=== PATIENT | female | born 1960 | race Hispanic/Latino ===

== ENCOUNTER 2017-10-18 10:56 | Outpatient (CLI) | payer OTHER ==
[2017-10-18 11:14] LABS: #Basophils 0.1 thou/uL (0.0-0.2); #Eosinphils 0.2 thou/uL (0.0-0.7); #Lymphocytes 2.7 thou/uL (1.20-3.40); #Monocytes 0.5 thou/uL (0.11-0.59); #Neutrophils 3.5 thou/uL (1.40-6.50); %Basophils 1.1 % (0.0-1.0); %Eosinophils 3.5 % (0.0-10.0); %Lymphocytes 38.8 % (21.0-51.0); %Monocytes 7.1 % (0.0-10.0); %Neutrophils 49.5 % (42.0-75.0); Hemoglobin 13.5 g/dL (12.0-16.0); Mean Corpuscular HGB CONC 35.2 g/dL (32.0-36.0); Mean Corpuscular Hemoglobin 30.1 pg (27.0-31.0); Mean Corpuscular Volume 85.5 fL (78.0-98.0); Mean Platelet Volume 7.4 fL (7.4-10.4); Platelet Count 272 thou/uL (130-400); RBC Distribution Width 10.7 % (11.5-14.5); Red Blood Cell (RBC) Count 4.51 mill/uL (4.20-5.40)
[2017-10-18 11:35] LABS: ALT (SGPT) 33 U/L (8-55); AST (SGOT) 28 U/L (5-34); Albumin 4.3 g/dL (3.5-5.0); Alkaline Phosphatase 103 U/L (40-150); Anion Gap 12 mmol/L (10-20); BUN (Urea Nitrogen) 10 mg/dL (9.8-20.1); Bilirubin, Total 0.6 mg/dL (0.2-1.2); Calc. Creatinine Clearance 0 mL/min (70-130); Calcium 9.6 mg/dL (7.8-10.44); Carbon Dioxide 26 mmol/L (22-29); Cardiac Risk 4.4 (Less than 4.5); Cholesterol 254 mg/dl (< 200 Desired); Estimated GFR-MDRD 85; Globulin 3.9 g/dL (2.4-3.5); Glucose 107 mg/dL (70-105); HDL Cholesterol 58 mg/dL (>60 Neg Risk); LDL Cholesterol, Calculated 158 mg/dL; Protein, Total 8.2 g/dL (6.0-8.3); Sodium 141 mmol/L (136-145); Triglycerides 192 mg/dL (Less than 150)
--- NOTE | 2017-10-18 12:00 | RAD ---
LUMBAR SPINE TWO VIEWS: History: 57-year-old female with history of low back pain primarily right sided, involving the upper and lower back with pain irradiating down the right leg. FINDINGS: Mild levoscoliosis of the lumbar vertebral column. 1.3 cm anterolisthesis of L5 on S1. Generalized di sc osteophytosis and facet arthrosis. No evidence for an acute compression fracture or focal bone les ion. IMPRESSION: Mild levoscoliosis of the lumbar vertebral column with 1.3 cm anterolisthesis of L5 on S1. Considerat ion for follow up standing flexion and extension views of the lumbar spine should be considered to ev aluate for potential instability. Arthrosis changes noted involving hip joints and SI joints and yesenia e sclerosis at the level of the pubic symphysis. No other acute process. POS: [facility]
--- NOTE | 2017-10-18 12:02 | RAD ---
THORACIC SPINE THREE VIEWS: History: 57-year-old female with history of right upper and lower back pain for three days with radiation down right leg. FINDINGS: There is extensive multilevel thoracic disc osteophytosis with some bony bridging. There is very slig ht vertical height lossof the anterior aspect of several upper thoracic vertebral bodies, nonspecific , but having more of an old appearance. IMPRESSION: Thoracic spondylosis. Very mild vertical height loss of several of the upper anterior and thoracic ve rtebral bodies having a more of an old appearance although if patient is focally point tender to this region, consideration for follow up MRI study might be of benefit. POS: [facility]
[2017-10-18 12:07] LABS: Free T4 (Free Thyroxine) 1.01 ng/dL (0.70-1.48); Thyroid Stimulating Hormone 2.1303 uIU/mL (0.35-4.94)
[2017-10-18 12:35] LABS: Chloride 107 mmol/L (98-107); Potassium 4.3 mmol/L (3.5-5.1)
[2017-10-18 14:57] LABS: Hemoglobin A1c 5.7 % (4.0-6.0)
== END 2017-10-18 10:57 | disposition home or self-care (01) ==
LOC: SCSRAD 10:56
PROVIDERS: ATTEND Family Medicine
DX: E78.5 Hyperlipidemia, unspecified (principal); R73.09 Other abnormal glucose; M54.41 Lumbago with sciatica, right side
CPT/HCPCS: 36415; 72072; 72100; 80053; 80061; 83036; 84439; 84443; 85025

== ENCOUNTER 2017-10-25 10:50 | Outpatient (CLI) | payer OTHER ==
--- NOTE | 2017-10-25 11:50 | RAD ---
LUMBAR SPINE: INDICATIONS: Back pain. Follow-up anterolisthesis at L5-S1, noted on prior exam. TECHNIQUE: Two views obtained. Lateral views were obtained with flexion and extension. FINDINGS: The anterolisthesis at L5-S1 is again noted and continues to measure approximately 1.3 cm. There is no change with flexion and extension. 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 POS: [facility]
== END 2017-10-25 10:51 | disposition home or self-care (01) ==
LOC: SCSRAD 10:50
PROVIDERS: ATTEND Family Medicine
DX: M43.16 Spondylolisthesis, lumbar region (principal)
CPT/HCPCS: 72100

== ENCOUNTER 2017-11-15 10:08 | Outpatient (CLI) | payer OTHER ==
--- NOTE | 2017-11-15 11:15 | RAD ---
PA AND LATERAL CHEST: History: Substernal chest pain. Pain with deep inspiration. FINDINGS: Heart size and mediastinum are within normal limits. The lungs are clear of infiltrates. No pleural e ffusions. No significant bony findings. Post op cholecystectomy change incidentally seen. IMPRESSION: No active intrathoracic disease. POS: [facility]
== END 2017-11-15 10:09 | disposition home or self-care (01) ==
LOC: SCSRAD 10:08
PROVIDERS: ATTEND Family Medicine
DX: M54.89 Other dorsalgia (principal)
CPT/HCPCS: 71046; 87086

== ENCOUNTER 2021-01-08 12:29 | Outpatient (CLI) | payer OTHER ==
[2021-01-08 14:11] LABS: Prothrombin Time 10.6 sec (9.5-12.1)
[2021-01-08 14:14] LABS: #Eosinphils 0.4 10x3/uL (0.0-0.5); #Monocytes 0.6 10x3/uL (0.0-1.1); #Neutrophils 4.6 10x3/uL (1.5-8.4); %Basophils 0.5 % (0.0-2.0); %Eosinophils 4.5 % (0.0-6.0); %Lymphocytes 33.1 % (18.0-47.0); %Neutrophils 54.8 % (40.0-75.0); Hemoglobin 12.7 g/dL (12.0-15.5); Mean Corpuscular HGB CONC 33.8 g/dL (32.0-36.0); Mean Corpuscular Hemoglobin 30.2 pg (27.0-33.0); Mean Corpuscular Volume 89.5 fl (81.6-98.3); Mean Platelet Volume 10.5 fl (7.4-10.4); Platelet Count 285 10x3/uL (150-450); RBC Distribution Width 12.4 % (11.5-14.5); White Blood Cell (WBC) Count 8.3 10x3/uL (3.5-10.5)
[2021-01-08 14:22] LABS: Anion Gap 14 mmol/L (10-20); BUN (Urea Nitrogen) 12 mg/dL (9.8-20.1); Calc. Creatinine Clearance 0 mL/min (70-130); Calcium 8.9 mg/dL (7.8-10.44); Carbon Dioxide 24 mmol/L (23-31); Chloride 108 mmol/L (98-107); Glucose 124 mg/dL (80-115); Potassium 4.2 mmol/L (3.5-5.1); Sodium 142 mmol/L (136-145)
[2021-01-08 21:14] LABS: SARS-CoV-2 PCR by NAA Not Detected (NotDetected)
== END 2021-01-08 12:30 | disposition home or self-care (01) ==
LOC: LABBT 12:29
PROVIDERS: ATTEND Orthopaedic Surgery
DX: Z01.818 Encounter for other preprocedural examination (principal); M17.12 Unilateral primary osteoarthritis, left knee; Z20.822 Contact with and (suspected) exposure to COVID-19
CPT/HCPCS: 80048; 85025; 85610; 87081; 93005; 93010; U0003; U0005

== ENCOUNTER 2021-01-12 05:34 | Day surgery (SDC) | payer OTHER ==
[2021-01-11 14:50] VITALS: BMI 34.0
[2021-01-12] MEDS ORDERED: Tranexamic Acid 1,000 MG/10 ML VIAL ONE (05:57)
[2021-01-12] MEDS ORDERED: Sodium Chloride 0.9% 100 ML ONE (05:57)
[2021-01-12] MEDS ORDERED: Vancomycin 1.5 GRAM/300 ML BAG 1.5 GM in Premix Bag 1 BAG IVPB SCH (06:15)
[2021-01-12] MEDS ORDERED: EPINEPHrine 1 MG/ML AMP ONE (06:29)
[2021-01-12] MEDS ORDERED: Bupivacaine 0.25% HCL 30 ML VIAL ONE (06:29)
[2021-01-12] MEDS ORDERED: Midazolam HCl 2 mg/2 ml Vial ONE (06:47)
[2021-01-12] MEDS ORDERED: Fentanyl 100 MCG/2 ML VIAL ONE ×4 (06:47→10:06)
[2021-01-12] MEDS ORDERED: Lidocaine 1% (PF) 30 ML VIAL ONE (06:47)
[2021-01-12] MEDS ORDERED: Ketorolac Tromethamine 30 MG/ML VIAL ONE (07:05)
[2021-01-12] MEDS ORDERED: Ondansetron PF 4 MG/2 ML Vial ONE (07:05)
[2021-01-12] MEDS ORDERED: Dexamethasone 20 MG/5 ML VIAL ONE (07:05)
[2021-01-12] MEDS ORDERED: Glycopyrrolate 0.2 MG/ML 5 ML SYRINGE ONE (07:05)
[2021-01-12] MEDS ORDERED: Rocuronium Bromide 10 MG/ML (10ML VIAL) ONE (07:05)
[2021-01-12] MEDS ORDERED: PROPOFOL 200 MG/20 ML VIAL ONE (07:05)
[2021-01-12] MEDS ORDERED: Bupivacaine HCl 0.5%/Epinephrine 1:200,000/PF 30 ml Vial ONE (07:05)
[2021-01-12] MEDS ORDERED: Fentanyl 100 MCG/2 ML VIAL IV PRN (09:09)
[2021-01-12] MEDS ORDERED: Promethazine HCl 25 MG/ML VIAL IM PRN ×2 (09:10→09:15)
[2021-01-12] MEDS ORDERED: Zolpidem Tartrate 5 MG TAB PO PRN ×2 (09:10→09:15)
[2021-01-12] MEDS ORDERED: diphenhydrAMINE 25 MG CAP PO PRN (09:10)
[2021-01-12] MEDS ORDERED: HYDROcodone/Acetaminophen 10/325 mg Tablet PO PRN ×4 (09:10→09:15)
[2021-01-12] MEDS ORDERED: Acetaminophen 325 MG TAB PO PRN (09:10)
[2021-01-12] MEDS ORDERED: Fentanyl 100 MCG/2 ML VIAL SLOW IVP PRN ×2 (09:10)
[2021-01-12] MEDS ORDERED: Ondansetron PF 4 MG/2 ML Vial IVP PRN ×2 (09:10→09:15)
[2021-01-12] MEDS ORDERED: Ropivacaine HCl/PF 250 ML in Premix Bag 1 BAG NERVE BLCK SCH (09:15)
[2021-01-12] MEDS ORDERED: traMADol HCl 50 MG TAB PO PRN ×2 (09:15)
[2021-01-12] MEDS: Sodium Chloride 0.9% 1,000 ML IV SCH ×2 (10:26→20:13)
[2021-01-12] MEDS: Ketorolac Tromethamine 30 MG/ML VIAL IVP SCH ×2 (13:24→23:35)
[2021-01-12] MEDS: CEFAZOLIN 2 GM in Sodium Chloride 0.9% 100 ML IVPB SCH ×2 (13:58→23:35)
[2021-01-12] MEDS ORDERED: Vancomycin HCl 1.5 GM in Sodium Chloride 0.9% 250 ML 300 ML IVPB SCH (20:00)
[2021-01-12] MEDS: Atorvastatin Calcium 40 MG TAB PO SCH (20:11)
[2021-01-12] MEDS: Aspirin 81 mg Enteric Coated Tablet PO SCH (20:12)
[2021-01-13] MEDS: Ketorolac Tromethamine 30 MG/ML VIAL IVP SCH ×3 (05:34→21:42)
[2021-01-13] MEDS: Sodium Chloride 0.9% 1,000 ML IV SCH ×2 (05:37→14:30)
[2021-01-13 05:58] LABS: Hemoglobin 11.3 g/dL (12.0-16.0); Mean Corpuscular HGB CONC 35.2 g/dL (32.0-36.0); Mean Corpuscular Hemoglobin 32.2 pg (27.0-31.0); Mean Corpuscular Volume 91.5 fL (78.0-98.0); Mean Platelet Volume 7.8 fL (7.4-10.4); Platelet Count 237 thou/uL (130-400); RBC Distribution Width 11.7 % (11.5-14.5); Red Blood Cell (RBC) Count 3.51 mill/uL (4.20-5.40); White Blood Cell (WBC) Count 11.1 thou/uL (4.8-10.8)
[2021-01-13] MEDS: Aspirin 81 mg Enteric Coated Tablet PO SCH ×2 (08:41→20:02)
[2021-01-13] MEDS: Ferrous Gluconate 324 MG TAB PO SCH ×2 (08:41→17:34)
[2021-01-13] MEDS: Multivitamin W/ Minerals 1 TAB PO SCH (08:41)
[2021-01-13] MEDS: Senokot S 8.6-50 MG TAB PO SCH ×2 (08:41→20:02)
[2021-01-13] MEDS: Atorvastatin Calcium 40 MG TAB PO SCH (20:02)
[2021-01-14] MEDS: Sodium Chloride 0.9% 1,000 ML IV SCH ×2 (01:41→09:29)
[2021-01-14] MEDS: Ketorolac Tromethamine 30 MG/ML VIAL IVP SCH (05:35)
[2021-01-14 06:08] LABS: Hemoglobin 10.8 g/dL (12.0-16.0); Mean Corpuscular HGB CONC 33.3 g/dL (32.0-36.0); Mean Corpuscular Hemoglobin 30.6 pg (27.0-31.0); Mean Corpuscular Volume 91.9 fL (78.0-98.0); Mean Platelet Volume 7.9 fL (7.4-10.4); Platelet Count 223 thou/uL (130-400); RBC Distribution Width 11.7 % (11.5-14.5); Red Blood Cell (RBC) Count 3.55 mill/uL (4.20-5.40); White Blood Cell (WBC) Count 11.3 thou/uL (4.8-10.8)
[2021-01-14] MEDS: Multivitamin W/ Minerals 1 TAB PO SCH (08:54)
[2021-01-14] MEDS: Ferrous Gluconate 324 MG TAB PO SCH (08:54)
[2021-01-14] MEDS: Senokot S 8.6-50 MG TAB PO SCH (08:55)
[2021-01-14] MEDS: Aspirin 81 mg Enteric Coated Tablet PO SCH (08:55)
[2021-01-14 11:52] VITALS: BP 117/74; TEMP 98.4
== END 2021-01-14 12:30 | disposition home or self-care (01) ==
LOC: SDC 05:34 → SJJU 09:10 → EDSTATUS 12:30 → SDC 01-14 12:30
PROVIDERS: ATTEND Orthopaedic Surgery
PROC: 0SRD0J9 Replacement of Left Knee Joint with Synthetic Substitute, Cemented, Open Approach (ICD-10-PCS; principal; 2021-01-12)
PROC: 3E0T3BZ Introduction of Anesthetic Agent into Peripheral Nerves and Plexi, Percutaneous Approach (ICD-10-PCS; principal; 2021-01-12)
DX: M17.12 Unilateral primary osteoarthritis, left knee (principal); E78.5 Hyperlipidemia, unspecified; R73.03 Prediabetes; I87.2 Venous insufficiency (chronic) (peripheral); Z79.899 Other long term (current) drug therapy
CPT/HCPCS: 36415; 85027; C1713; C1776; J0171; J0690; J1100; J1885; J2001; J2250; J2405; J2704; J2795; J3010; J3370; J3490; J7050; S0020